=== PATIENT | female | born 1995 | race African-American/Black ===

== ENCOUNTER 2017-08-20 05:07 | Inpatient (IN) | payer OTHER ==
[2017-08-20] MEDS ORDERED: Lactated Ringer's 1,000 ML IV SCH ×2 (05:26→18:15)
[2017-08-20] MEDS ORDERED: Bicitra 30 ML UDCUP PO SCH (05:26)
[2017-08-20] MEDS ORDERED: Ondansetron HCl/PF 4 MG/2 ML Vial IVP PRN ×4 (05:26→18:09)
[2017-08-20] MEDS ORDERED: Butorphanol Tartrate 1 MG/ML VIAL SLOW IVP PRN (05:26)
[2017-08-20] MEDS ORDERED: CEFAZOLIN/Water 2 GM/20 ML SYRINGE SLOW IVP SCH (05:26)
[2017-08-20] MEDS ORDERED: Promethazine HCl 25 MG/ML VIAL IM PRN ×2 (05:26→08:31)
[2017-08-20 05:51] VITALS: BMI 25.6
[2017-08-20 06:23] LABS: Hemoglobin 9.3 g/dL (12.0-16.0); Mean Corpuscular HGB CONC 32.9 g/dL (32.0-36.0); Mean Corpuscular Hemoglobin 24.5 pg (27.0-31.0); Mean Corpuscular Volume 74.3 fL (78.0-98.0); Mean Platelet Volume 9.1 fL (7.4-10.4); Platelet Count 239 thou/uL (130-400); RBC Distribution Width 15.2 % (11.5-14.5); Red Blood Cell (RBC) Count 3.78 mill/uL (4.20-5.40); White Blood Cell (WBC) Count 11.3 thou/uL (4.8-10.8)
[2017-08-20 06:58] LABS: Syphilis Antibody Nonreactive (Nonreactive); Syphilis Antibody Index 0.04 S/CO (<1.00 Non-Reactive)
[2017-08-20 06:59] LABS: HBSAg Index 0.18 S/CO (0-0.99); Hep B Surf Ag Non-Reactive S/CO (NonReactive)
[2017-08-20] MEDS ORDERED: Morphine PF 1 MG/ML SYR ONE (07:18)
[2017-08-20] MEDS ORDERED: diphenhydrAMINE 50 MG/ML VIAL ONE ×2 (07:19→14:18)
[2017-08-20] MEDS ORDERED: Ondansetron HCl/PF 4 MG/2 ML Vial ONE ×2 (07:19→14:18)
[2017-08-20] MEDS ORDERED: Ketorolac Tromethamine 30 MG/ML VIAL ONE ×2 (07:19→14:18)
[2017-08-20] MEDS ORDERED: Dexamethasone 4 mg/ml Vial ONE (07:19)
[2017-08-20] MEDS ORDERED: PHENYLEPHRINE-NS 100 MCG/ML 10 ML SYRINGE ONE ×3 (07:19→14:18)
[2017-08-20] MEDS ORDERED: Bupivacaine 0.75% W/DEXTROSE 8.25% 2 ML AMP ONE (07:19)
[2017-08-20] MEDS ORDERED: Lidocaine 1% PF 5 ML VIAL ONE (07:19)
[2017-08-20] MEDS ORDERED: Oxytocin 10 UNITS/ML VIAL ONE (07:19)
[2017-08-20] MEDS ORDERED: ePHEDrine/0.9% NaCl/PF SYRINGE 50 mg/10 ml ONE ×2 (07:42→14:18)
[2017-08-20] MEDS ORDERED: Glycopyrrolate 0.2 MG/ML 5 ML SYRINGE ONE ×2 (07:45→14:18)
[2017-08-20] MEDS ORDERED: Eucerin (Mineral Oil/Petrolatum,White) 30 gm Jar TOP PRN (08:31)
[2017-08-20] MEDS ORDERED: HYDROmorphone 2 MG/ML VIAL SLOW IVP PRN (08:31)
[2017-08-20] MEDS ORDERED: Naloxone HCl 0.4 mg/ml Vial IV PRN (08:31)
[2017-08-20] MEDS ORDERED: Promethazine HCl 25 MG SUPP PR PRN (08:31)
[2017-08-20] MEDS ORDERED: Naloxone HCl 0.4 mg/ml Vial IVP PRN ×2 (08:31)
[2017-08-20] MEDS ORDERED: diphenhydrAMINE 50 MG/ML VIAL IVP PRN (08:31)
[2017-08-20] MEDS ORDERED: Meperidine HCl/PF 25 MG/ML VIAL SLOW IVP PRN (08:31)
[2017-08-20] MEDS ORDERED: Ketorolac Tromethamine 30 MG/ML VIAL IVP PRN (08:31)
[2017-08-20] MEDS ORDERED: Communication Order-Pharmacy FS SCH (08:45)
[2017-08-20] MEDS ORDERED: Meperidine HCl/PF 25 MG/ML VIAL ONE (10:15)
[2017-08-20] MEDS ORDERED: Dexamethasone 20 MG/5 ML VIAL ONE (14:18)
[2017-08-20] MEDS ORDERED: Sodium Chloride 0.9% 10 ML ONE (16:14)
[2017-08-20] MEDS ORDERED: Acetaminophen 325 MG TAB PO PRN (18:09)
[2017-08-20] MEDS ORDERED: Lanolin Ointment 7 GM TUBE TOP PRN (18:09)
[2017-08-20] MEDS ORDERED: Meperidine HCl/PF 25 MG/ML VIAL IM PRN (18:09)
[2017-08-20] MEDS ORDERED: Zolpidem Tartrate 5 MG TAB PO PRN (18:09)
[2017-08-20] MEDS ORDERED: Bisacodyl 10 MG SUPP PR PRN (18:09)
[2017-08-20] MEDS ORDERED: Acetaminophen/Codeine 30-300mg Tablet PO PRN ×2 (18:09)
[2017-08-20] MEDS ORDERED: diphenhydrAMINE 25 MG CAP PO PRN (18:09)
[2017-08-20] MEDS ORDERED: NS / Oxytocin 40 units/1000ml 1,000 ML IV SCH (18:15)
[2017-08-20] MEDS: Ibuprofen 800 MG TAB PO SCH (20:30)
[2017-08-20] MEDS: Docusate Calcium (SURFAK) 240 MG CAP PO SCH (20:30)
[2017-08-20] MEDS: Simethicone Chewable 80 MG TAB PO PRN (20:31)
[2017-08-21] MEDS: Ibuprofen 800 MG TAB PO SCH ×3 (05:49→21:29)
[2017-08-21 06:04] LABS: Hemoglobin 8.2 g/dL (12.0-16.0); Mean Corpuscular HGB CONC 32.9 g/dL (32.0-36.0); Mean Corpuscular Hemoglobin 24.7 pg (27.0-31.0); Mean Platelet Volume 8.3 fL (7.4-10.4); Platelet Count 217 thou/uL (130-400); RBC Distribution Width 14.9 % (11.5-14.5); White Blood Cell (WBC) Count 14.3 thou/uL (4.8-10.8)
[2017-08-21] MEDS ORDERED: Adacel (T-DAP) 0.5 ML VIAL IM ONE (09:00)
[2017-08-21] MEDS: Prenatal Vitamin 1 TAB PO SCH (09:02)
[2017-08-21] MEDS: Ferrous Sulfate 325 MG TAB PO SCH ×2 (09:02→17:15)
[2017-08-21] MEDS: Docusate Calcium (SURFAK) 240 MG CAP PO SCH ×2 (09:02→21:29)
[2017-08-21] MEDS: Simethicone Chewable 80 MG TAB PO PRN (21:29)
[2017-08-22] MEDS: Ibuprofen 800 MG TAB PO SCH (05:13)
[2017-08-22 08:51] VITALS: BP 109/67; TEMP 98.3
[2017-08-22] MEDS: Prenatal Vitamin 1 TAB PO SCH (09:38)
[2017-08-22] MEDS: Ferrous Sulfate 325 MG TAB PO SCH (09:38)
[2017-08-22] MEDS: Docusate Calcium (SURFAK) 240 MG CAP PO SCH (09:38)
[2017-08-22] MEDS ORDERED: Ibuprofen 800 MG TAB PO SCH (14:00)
--- NOTE | 2017-08-30 10:07 | OP ---
DATE OF PROCEDURE: 08/20/2017 ATTENDING STAFF PHYSICIAN: Alexis Guerra M.D. SURGEON: Alexis Guerra M.D. GOVERNMENT SERVICE EXECUTIVE SURGEON: 1. Vangie Hubbard M.D. 2. Joyce Jacobo MD PREOPERATIVE DIAGNOSES: 1. Term intrauterine at 39 weeks. 2. Prior section x2. POSTOPERATIVE DIAGNOSES: 1. Term intrauterine at 39 weeks. 2. Prior section x2. PROCEDURE: Repeat low-transverse section. ANESTHESIA: Spinal catheterization. FINDINGS: 1. Vigorous male , 7 pounds 0 ounces, Apgars 8 and 9. 2. Normal uterus, tubes, and ovaries. COMPLICATIONS: None. SPECIMENS REMOVED: The cord blood. BLOOD LOSS: 800 mL. DESCRIPTION OF PROCEDURE: After thorough consent and counseling, Ms. Wright was taken to the opera tin room and adequate level of anesthesia was obtained by spinal catheterization. The patient was p repped and draped in the usual sterile fashion for abdominal surgery. A Ibarra was placed in the blad angelika, which was noted to be draining clear urine. Attention was then turned to performing the repeat low-transverse section. A Pfannenstiel incision was made and the old scar was excised. The incision was carried sharply to the fascia, which was also sharply incised. The incision was extend ed bilaterally. The abdominal peritoneal cavity was entered with usual safeguards carried out. A re tractor was placed and a bladder flap was created on the vesicouterine peritoneum. A bladder blade w as then placed. A low-transverse incision was made on the well-developed lower uterine segment. Upo n entering the amniotic sac, copious amount of clear amniotic fluid was visualized. The infant was i n vertex presentation in the occiput anterior position. Head was delivered and baby was bulb suction ed on the abdomen. Shoulders and body was then delivered in an atraumatic fashion. The cord was esther bronwyn clamped and cut and the was handed to the Pediatric team in attendance for the delivery. The was a vigorous viable male, 7 pounds 0 ounces, Apgars 8 and 9. Cord blood was obtained. The placenta was manually removed from the uterus. The uterus was exteriorized and good tone and hem ostasis was noted. The uterine cavity was cleared of clot and fluid. The low-transverse incision wa s closed with a running locking ligature of #1 chromic. A second imbricating layer was placed to fac ilitate strength and hemostasis. The vesicouterine peritoneum was then closed with a running ligatur e of 3-0 Monocryl. The posterior cul-de-sac and gutters were cleared of clot and fluid. The uterus, fallopian tubes, and ovaries were inspected and noted to be hemostatic. Seprafilm was applied to th e low-transverse incision and to the anterior aspect of the uterus for adhesion prevention. The uter us was returned to the abdomen. Good tone and hemostasis noted. Lap, sponge, and needle counts were correct. The peritoneum was then closed with a running ligature of 2-0 Vicryl. The rectus muscles were reapproximated in the midline with interrupted ligatures of both 2-0 Vicryl and #1 chromic sutur e. The fascia was then closed with 2 ligatures of 0 Vicryl suture, which were tied in the midline. Good fascial integrity was appreciated. The incision was irrigated with copious amount of warm leonides l saline. Hemostasis was obtained with Bovie cauterization. The subcutaneous tissue was closed with interrupted ligatures of 2-0 plain. The skin was closed with a subcuticular stitch of 4-0 Monocryl. A pressure dressing and ice packs were subsequently placed. Lap, sponge, and needle counts were co rrect x3. Estimated blood loss during the surgical procedure was approximately 800 mL. The patient was taken to recovery room in good condition. Immediately following surgery, the patient and family were made aware of the surgical procedure and operative findings.
== END 2017-08-22 13:15 | disposition home or self-care (01) | DRG 766 ==
LOC: EEVIPCON 05:07 → L&D 05:07 → 3SW 11:13
PROVIDERS: ADMIT Obstetrics & Gynecology; ATTEND Obstetrics & Gynecology
PROC: 10D00Z1 Extraction of Products of Conception, Low, Open Approach (ICD-10-PCS; principal; 2017-08-20)
DX: O34.211 Maternal care for low transverse scar from previous cesarean delivery (principal); Z37.0 Single live birth; Z3A.39 39 weeks gestation of pregnancy
CPT/HCPCS: 36415; 51702; 85027; 86780; 86850; 86900; 86901; 87340; A4216; J1100; J1200; J1885; J2001; J2175; J2274; J2405; J2590; J3490

== ENCOUNTER 2019-07-14 11:08 | Inpatient (IN) | payer OTHER ==
[2019-07-14] MEDS ORDERED: Ondansetron PF 4 MG/2 ML Vial IVP PRN ×3 (11:14→17:13)
[2019-07-14] MEDS ORDERED: Promethazine HCl 25 MG/ML VIAL IM PRN ×2 (11:14→14:43)
[2019-07-14] MEDS ORDERED: hydrALAZINE 20 MG/ML VIAL SLOW IVP PRN ×2 (11:14→17:13)
[2019-07-14] MEDS ORDERED: Butorphanol Tartrate 1 MG/ML VIAL SLOW IVP PRN (11:14)
[2019-07-14] MEDS ORDERED: CEFAZOLIN 2 GM in Premix Bag 1 BAG IVPB SCH (11:15)
[2019-07-14] MEDS ORDERED: Bicitra 30 ML UDCUP PO SCH (11:15)
[2019-07-14 11:37] VITALS: BMI 24.6
[2019-07-14] MEDS: Lactated Ringer's 1,000 ML IV SCH ×2 (11:54→13:11)
[2019-07-14 12:10] LABS: Hemoglobin 12.5 g/dL (12.0-16.0); Mean Corpuscular HGB CONC 34.8 g/dL (32.0-36.0); Mean Corpuscular Hemoglobin 29.1 pg (27.0-31.0); Mean Corpuscular Volume 83.7 fL (78.0-98.0); Mean Platelet Volume 9.9 fL (7.4-10.4); Platelet Count 208 thou/uL (130-400); RBC Distribution Width 14.9 % (11.5-14.5); Red Blood Cell (RBC) Count 4.29 mill/uL (4.20-5.40); White Blood Cell (WBC) Count 13.7 thou/uL (4.8-10.8)
[2019-07-14 12:50] LABS: HBSAg Index 0.15 S/CO (0-0.99); Hep B Surf Ag Non-Reactive S/CO (NonReactive); Syphilis Antibody Nonreactive (Nonreactive); Syphilis Antibody Index 0.05 S/CO (<1.00 Non-Reactive)
[2019-07-14] MEDS ORDERED: MORPHINE 5 MG/10 ML PF VIAL ONE (13:16)
[2019-07-14] MEDS ORDERED: Ondansetron PF 4 MG/2 ML Vial ONE (13:16)
[2019-07-14] MEDS ORDERED: PHENYLEPHRINE-NS 100 MCG/ML 10 ML SYRINGE ONE (13:16)
[2019-07-14] MEDS ORDERED: EPHEDRINE 25 MG/5 ML SYRINGE ONE (13:16)
[2019-07-14] MEDS ORDERED: diphenhydrAMINE 50 MG/ML VIAL IVP PRN (14:43)
[2019-07-14] MEDS ORDERED: Ondansetron HCl/PF 4 MG/2 ML Vial IVP PRN (14:43)
[2019-07-14] MEDS ORDERED: HYDROmorphone 2 MG/ML VIAL SLOW IVP PRN (14:43)
[2019-07-14] MEDS ORDERED: Naloxone HCl 0.4 mg/ml Vial IV PRN (14:43)
[2019-07-14] MEDS ORDERED: Naloxone HCl 0.4 mg/ml Vial IVP PRN ×2 (14:43)
[2019-07-14] MEDS ORDERED: Promethazine HCl 25 MG SUPP PR PRN (14:43)
[2019-07-14] MEDS ORDERED: Meperidine HCl/PF 25 MG/ML VIAL SLOW IVP PRN (14:43)
[2019-07-14] MEDS ORDERED: L&D-Morphine 4 MG/ML VIAL SLOW IVP PRN (14:43)
[2019-07-14] MEDS ORDERED: Ketorolac Tromethamine 30 MG/ML VIAL IVP SCH (14:45)
[2019-07-14] MEDS ORDERED: Communication Order-Pharmacy FS SCH (14:45)
[2019-07-14] MEDS ORDERED: Misoprostol 200 MCG TAB ONE (15:52)
[2019-07-14] MEDS ORDERED: NS / Oxytocin 40 units/1000ml 1,000 ML ONE (15:52)
[2019-07-14] MEDS ORDERED: Ketorolac Tromethamine 30 MG/ML VIAL ONE (16:17)
[2019-07-14] MEDS ORDERED: Meperidine HCl/PF 25 MG/ML VIAL ONE (16:17)
[2019-07-14] MEDS ORDERED: Misoprostol 200 MCG TAB PR SCH (16:30)
[2019-07-14] MEDS: Ketorolac Tromethamine 30 MG/ML VIAL IVP PRN (16:40)
[2019-07-14] MEDS ORDERED: Simethicone Chewable 80 MG TAB PO PRN (17:13)
[2019-07-14] MEDS ORDERED: Lanolin Ointment 7 GM TUBE TOP PRN (17:13)
[2019-07-14] MEDS ORDERED: NS / Oxytocin 40 units/1000ml 1,000 ML IV SCH (17:13)
--- NOTE | 2019-07-14 22:42 | OP ---
DATE OF PROCEDURE: 07/14/2019 PRIMARY SURGEON: Alexis Guerra MD RESIDENT SURGEON: Kyra Valles DO PROCEDURE: Repeat low transverse . PREOPERATIVE DIAGNOSES: 1. Term intrauterine in labor. 2. History of labor. 3. History of spontaneous . 4. Previous x3. POSTOPERATIVE DIAGNOSES: 1. Term intrauterine , delivered. 2. Repeat low-transverse . 3. History of labor. 4. History of spontaneous . 5. Previous x3. INDICATIONS: This is a 23-year-old G5, P2-1-1-3 at 38.1 weeks, who presented to clinic with q.5 minute contractions as well as vaginal bleeding. She was sent over to Labor and Delivery and due to continued contractions with associated vaginal bleeding and history of three previous sections, decision was made to proceed with repeat section. PROCEDURE IN DETAIL: After risks, benefits, and alternatives were discussed, the patient gave informed consent. She was given cefazolin 2 g IV. The patient was taken back to the operating room, where spinal anesthesia was initiated. She was laid in supine position with left lateral tilt. She was prepped and draped in the usual sterile fashion. A Pfannenstiel incision was made along the previous incision and carried down to the level of the fascia, which was sharply nicked. The cut fascial edges were extended laterally with curved Ortega scissors. The superior and inferior edges of the cut fascia were elevated with Corey clamps, and the underlying rectus muscles were dissected free using the scalpel. Two hemostats were used to identify the midline of rectus muscles. The Ortega scissors were then used to separate the rectus muscles in the midline, paying close attention to the urinary bladder. The peritoneum was entered bluntly and retracted manually. Bladder blade was placed. A bladder flap was created using the Metzenbaum scissors. The hysterotomy was created in the midline lower uterine segment using scalpel. Upon entering clear fluid was seen. The infant was noted to be vertex and was easily delivered by fundal pressure. Nuchal cord x1 which was reduced. The cord was clamped and cut and grossly normal female infant was handed to the waiting nurse. Cord blood was collected. Placenta was manually extracted and noted to be intact with 3-vessel cord and discarded. The uterus was then externalized and curetted extensively with a dry lap x2. The hysterotomy was then closed using #1 chromic suture in a running locking fashion. Seprafilm was placed. The uterus was internalized, and hysterotomy was again examined and noted to be hemostatic. The peritoneum was closed using 2-0 Vicryl in a running nonlocking fashion. The rectus muscles were examined, and bleeders were cauterized. The fascia was closed using 0 Vicryl suture in a running nonlocking fashion. The subcutaneous tissue was irrigated and suctioned free of clots. The subcutaneous tissue was then brought together using 2-0 plain gut in simple interrupted fashion. The skin was then closed using 4-0 monofilament. Dermabond was applied. Pressure dressing was placed. All counts were correct. Mother went to Recovery for routine care. COMPLICATIONS: None. QBL: 880 mL. DRAINS: Ibarra to gravity, draining clear urine. NOTE: Grossly normal female with of 9 and 9 at one and five minutes respectively. weight of 6 pounds 11 ounces. Job ID: [id number]
[2019-07-15] MEDS: Ferrous Sulfate 325 MG TAB PO SCH ×3 (00:20→21:11)
[2019-07-15] MEDS: Docusate Calcium (SURFAK) 240 MG CAP PO SCH ×3 (00:20→21:11)
[2019-07-15] MEDS: Ketorolac Tromethamine 30 MG/ML VIAL IVP PRN (01:13)
[2019-07-15] MEDS: Lactated Ringer's 1,000 ML IV SCH (01:55)
[2019-07-15] MEDS ORDERED: HYDROcodone/Acetaminophen 5/325 mg Tablet PO PRN (02:45)
[2019-07-15] MEDS: diphenhydrAMINE 25 MG CAP PO PRN ×2 (05:24→17:23)
[2019-07-15 06:55] LABS: Mean Corpuscular Volume 87.1 fL (78.0-98.0)
[2019-07-15 06:56] LABS: Hemoglobin 9.4 g/dL (12.0-16.0); Mean Corpuscular HGB CONC 32.5 g/dL (32.0-36.0); Mean Corpuscular Hemoglobin 28.3 pg (27.0-31.0); Platelet Count 151 thou/uL (130-400); RBC Distribution Width 14.9 % (11.5-14.5); Red Blood Cell (RBC) Count 3.32 mill/uL (4.20-5.40)
[2019-07-15] MEDS ORDERED: Adacel (T-DAP) 0.5 ML SYRINGE IM ONE (09:00)
[2019-07-15] MEDS: Prenatal Vitamin 1 TAB PO SCH (09:27)
[2019-07-15] MEDS: Ibuprofen 800 MG TAB PO SCH ×2 (14:53→21:11)
[2019-07-16] MEDS: HYDROcodone/Acetaminophen 5/325 mg Tablet PO PRN ×2 (00:43→05:49)
[2019-07-16] MEDS: Ibuprofen 800 MG TAB PO SCH ×2 (05:46→13:38)
[2019-07-16] MEDS: Ferrous Sulfate 325 MG TAB PO SCH (08:47)
[2019-07-16] MEDS: Docusate Calcium (SURFAK) 240 MG CAP PO SCH (08:47)
[2019-07-16] MEDS: Prenatal Vitamin 1 TAB PO SCH (08:47)
[2019-07-16 11:50] VITALS: BP 112/74; TEMP 98
== END 2019-07-16 14:15 | disposition home or self-care (01) | DRG 788 ==
LOC: L&D 11:08 → 3SW 17:59
PROVIDERS: ADMIT Obstetrics & Gynecology; ATTEND Obstetrics & Gynecology
PROC: 10D00Z1 Extraction of Products of Conception, Low, Open Approach (ICD-10-PCS; principal; 2019-07-14)
DX: O34.211 Maternal care for low transverse scar from previous cesarean delivery (principal); O99.824 Streptococcus B carrier state complicating childbirth; O69.81X0 Labor and delivery complicated by cord around neck, without compression, not applicable or unspecified; Z3A.38 38 weeks gestation of pregnancy; Z37.0 Single live birth
CPT/HCPCS: 36600; 51702; 85027; 86780; 86850; 86900; 86901; 87340; J0595; J0690; J1200; J1885; J2175; J2274; J2405; Q0163